=== PATIENT | male | born 1995 | race African-American/Black ===

== ENCOUNTER 2023-04-02 09:45 | Emergency (ER) | payer OTHER ==
[~2023-04-02] VITALS: Ht 188 cm; Wt 86.0 kg
[2023-04-02] MEDS ORDERED: NAPR-837 PO (13:23)
[2023-04-02] MEDS ORDERED: CYCL-707 PO (13:23)
[2023-04-02 13:33] VITALS: BP 128/62; TEMP 98; O2SAT 99
== END 2023-04-02 13:33 | disposition home or self-care (01) ==
LOC: M ED 09:45
DX: S13.4XXA Sprain of ligaments of cervical spine, initial encounter (principal); S23.3XXA Sprain of ligaments of thoracic spine, initial encounter; S43.402A Unspecified sprain of left shoulder joint, initial encounter; V48.5XXA Car driver injured in noncollision transport accident in traffic accident, initial encounter; Y92.410 Unspecified street and highway as the place of occurrence of the external cause

== ENCOUNTER 2023-07-26 02:21 | Emergency (ER) | payer OTHER ==
[~2023-07-26] VITALS: Ht 188 cm; Wt 74.0 kg
[~2023-07-26 02:21] MED LIST: CYCL-707 PO; NAPR-837 PO
[2023-07-26] MEDS ORDERED: ISOVUE-370 76% 100ML VIAL As Ordered ONE (02:50)
[2023-07-26 03:29] LABS: BASO % 0.6 % (0.0-1.0); EOS # 0.1 10^3/uL (0.0-0.5); EOS % 1.5 % (0.0-3.0); HEMATOCRIT 37.2 % (42.0-52.0); HEMOGLOBIN 12.3 g/dl (13.5-17.5); LYMPH # 1.6 10^3/uL (1.5-5.0); LYMPH % 48.5 % (24.0-44.0); MEAN CORPUSCULAR HEMOGLOBIN 27.6 pg (27.0-33.0); MEAN CORPUSCULAR HGB CONC 33.1 g/dl (32.0-36.5); MEAN CORPUSCULAR VOLUME 83.4 fl (80.0-96.0); MONO # 0.2 10^3/uL (0.0-0.8); MONO % 6.9 % (2.0-8.0); NEUTROPHILS # 1.4 10^3/uL (1.5-8.5); NEUTROPHILS % 42.5 % (36.0-66.0); PLATELET COUNT, AUTOMATED 210 10^3/uL (150-450); RED BLOOD COUNT 4.46 10^6/uL (4.30-6.10); WHITE BLOOD COUNT 3.3 10^3/uL (4.0-10.0)
[2023-07-26 03:42] LABS: INR 1.24; PROTHROMBIN TIME 15.3 SECONDS (12.5-14.5)
[2023-07-26 03:43] LABS: PARTIAL THROMBOPLASTIN TIME 30.2 SECONDS (24.8-34.2)
[2023-07-26 03:52] LABS: RSV AMPLIFICATION NEGATIVE (NEGATIVE)
[2023-07-26 03:56] LABS: ETHYL ALCOHOL (ETHANOL) 0.232 % (0.000-0.010); LIPASE 24 U/L (12-53)
[2023-07-26 03:57] LABS: AMYLASE 82 U/L (30-118); CPK CREATINE PHOSPHOKINASE 293 U/L (46-171)
[2023-07-26 03:58] LABS: ALBUMIN 3.5 G/DL (3.2-5.2); ALKALINE PHOSPHATASE 67 U/L (46-116); ALT/SGPT 26 U/L (7.0-40); AST/SGOT 19 U/L (<34); BILIRUBIN,DIRECT < 0.1 MG/DL (<0.4); BILIRUBIN,TOTAL 0.3 MG/DL (0.3-1.2); BLOOD UREA NITROGEN 13 MG/DL (9-23); CALCIUM LEVEL 8.1 MG/DL (8.5-10.1); CARBON DIOXIDE LEVEL 27 MMOL/L (20-31); CHLORIDE LEVEL 106 MMOL/L (98-107); CK-MB VALUE MASS < 1.0 NG/ML (<3.6); CREATININE FOR GFR 0.94 MG/DL (0.70-1.30); GLOMERULAR FILTRATION RATE > 60.0 (>60); GLUCOSE, FASTING 105 MG/DL (60-100); MB/CK RELATIVE INDEX 0.34 (< OR =4); POTASSIUM SERUM 3.5 MMOL/L (3.5-5.1); SODIUM LEVEL 140 MMOL/L (136-145); TOTAL PROTEIN 6.9 G/DL (5.7-8.2)
[2023-07-26 04:49] LABS: APPEARANCE, URINE CLEAR (CLEAR); BACTERIA, URINE AUTO NEGATIVE (NEGATIVE); BILIRUBIN, URINE AUTO NEGATIVE (NEGATIVE); BLOOD, URINE BLOOD NEGATIVE (NEGATIVE); COLOR, URINE COLORLESS (YELLOW); GLUCOSE, URINE (UA) AUTO NEGATIVE (NEGATIVE); KETONE, URINE AUTO NEGATIVE (NEGATIVE); LEUKOCYTE ESTERASE, URINE AUTO NEGATIVE (NEGATIVE); NITRITE, URINE AUTO NEGATIVE (NEGATIVE); PROTEIN, URINE AUTO NEGATIVE (NEGATIVE); RBC, URINE AUTO 0 /HPF (0-3); SPECIFIC GRAVITY URINE AUTO 1.015 (1.002-1.035); SQUAMOUS EPITHELIAL CELL UR AU 0 /HPF (0-6); UROBILINOGEN, URINE AUTO 0.2 mg/dL (0.0-2.0); WBC, URINE AUTO 0 /HPF (0-3)
[2023-07-26 05:13] LABS: AMPHETAMINES LEVEL URINE NEGATIVE (NEGATIVE); BARBITURATES URINE NEGATIVE (NEGATIVE); CANNABINOIDS URINE NEGATIVE (NEGATIVE); COCAINE METABOLITE URINE NEGATIVE (NEGATIVE); METHADONE URINE NEGATIVE (NEGATIVE); PHENCYCLIDINE URINE NEGATIVE (NEGATIVE)
[2023-07-26 05:14] LABS: BENZODIAZEPINES URINE NEGATIVE (NEGATIVE)
[2023-07-26 05:29] LABS: OPIATES URINE POSITIVE (NEGATIVE)
[2023-07-26] MEDS ORDERED: NS 1,000 ML IV ONE (06:50)
[2023-07-26] MEDS ORDERED: AMOX875T2 PO (14:53)
[2023-07-26 15:06] VITALS: BP 131/67; TEMP 98; O2SAT 98
== END 2023-07-26 15:08 | disposition home or self-care (01) ==
LOC: EDBD 02:21 → M ED 02:21
DX: S02.5XXA Fracture of tooth (traumatic), initial encounter for closed fracture (principal); S02.609A Fracture of mandible, unspecified, initial encounter for closed fracture; V47.5XXA Car driver injured in collision with fixed or stationary object in traffic accident, initial encounter; Y92.410 Unspecified street and highway as the place of occurrence of the external cause
CPT/HCPCS: 70450; 70486; 71045; 71260; 72125; 72128; 72131; 74177; 80047; 80048; 80076; 80307; 81001; 82077; 82150; 82550; 82553; 83605; 83690; 84484; 85025; 85610; 85730; 86850; 86900; 86901; 87631; 93041; 94760; 96360; 96361; 99285; Q9967

== ENCOUNTER → 2024-05-11 | Outpatient (REF) ==
[~2024-05-11] MED LIST changes: +AMOX875T2 PO
== END ==
LOC: M PLAIMG 14:57
PROVIDERS: ATTEND Nurse Practitioner Family
DX: R52 Pain, unspecified (principal)